=== PATIENT | male | born 1935 | race Caucasian/White ===

== ENCOUNTER → 2016-07-24 | Outpatient (CLI) | payer OTHER ==
[~2016-07-24] VITALS: Ht 177.8 cm; Wt 86.2 kg
[~2016-07-24] MED LIST: ACTOS PO; ADVAIR 100-501 EACH INH; ALLOPURINOL 30300 M1 PO; ALLOPURINOL 30300 M2 PO; ASPIRIN EC81 M1 PO; ASPIRIN325 PO; AVODART0.5 MG PO; CALCIUM 600 +1 EAC5 PO; CELEBREX 200 M200 MG PO; CLOPIDOGREL75 MG PO; CO Q-10100 MG PO; DIOVAN PO; DOCUSATE SODIU100 MG PO; EFFIENT10 MG PO; ENDOCET 10-3251 EACH PO; FLOMAX PO; FUROSEMIDE 40 M40 M1 PO; GLUCOPHAGE500 MG PO; HYDROCODONE-APA1 TA1 PO; INCRUSE ELLI62.5 MCG IH; LIVALO2 MG PO; METHYLIN 10 MG10 M1 PO; METHYLIN PO; METHYLIN10 MG PO; METHYLIN5 M1 PO; METHYLIN5 MG PO; METHYLPHENIDATE 10 MG PO; MIRALAX255 GM PO; MIRAPEX0.125 MG; MOVANTIK25 MG PO; NASONEX17 GM NS; NEURONTIN 300300 M1; NEURONTIN 300300 M1 PO; NEURONTIN800 MG PO; NUCYNTA ER100 MG PO; OMEPRAZOLE 20 M20 M1 PO; OPANA5 MG PO; OXYCODONE-ACET1 EAC2 PO; OXYCONTIN10 M1 PO; OXYCONTIN10 MG PO; OXYCONTIN15 MG PO; PANTOPRAZOLE SO40 M1 PO; PEPCID AC20 M1 PO; PERCOCET 10-321 EACH PO; PERCOCET 7.5-31 EAC1 PO; PERCOCET 7.5-31 EACH PO; PLAVIX 75 MG TA75 MG PO; PRAVASTATIN SOD10 MG PO; ROXICODONE5 M2 PO; ROXICODONE5 MG PO; STOOL SOFTENER1 EAC2 PO; TAMSULOSIN HCL0.4 M1 PO; TRENTAL400 MG PO
--- NOTE | ~2016-07-24 | HPC ---
[facility] [address] [place] [address] PAIN MANAGEMENT CONSULTATION Name: CHATO LYNCH Room #: REG [facility] Bon.#: [id number] Admission: 07/24/16 Attend Phys: Harrison Coto DO Discharge: Date of : 35 Report #: [id number] THIS REPORT FOR: //name// CC: Harrison Coto ADRIANNA ROGERS The patient is a pleasant 80-year-old gentleman well known to pain clinic, typically treated for lumbar radiculopathy status post decompressive laminectomy. Comorbidity includes atherosclerotic peripheral vascular disease requiring complex medication management. Last seen in pain clinic back in April. He was having some sedation with gabapentin 300 mg 3 at night and Percocet 7.5 three a day. We decreased the gabapentin to two a day and rotated the hydrocodone 7.5/325 three a day. He returns to pain clinic today noting the medications have been quite helpful. He feels that he is a little less sedated. He has been using Movantik 25 mg to help with opiate-induced constipation that has been efficacious as well. The patient notes pain is about 7/10, but he is generally doing all activities of daily living. Chronic low back pain with no significant radicular component noted. PHYSICAL EXAMINATION: GENERAL: Shows a 27-year-old gentleman. NEUROLOGIC: Alert and oriented to person, place, and time, judged to be a reasonable historian. VITAL SIGNS: Blood pressure is modestly elevated at 176/81, pulse 56, respirations are 18. Alert and oriented as noted. MUSCULOSKELETAL: Upper extremity strength is symmetric. Rises from chair using armrest. Gait is tandem. Lower extremity strength is preserved. Diffuse tenderness across the low back. No discrete trigger points noted. We reviewed the fact that opiate medications are being used to provide analgesia adequate to support activities of daily living, not attempting to achieve a specific pain score on the 0-10 Visual Analog Scale. The current opiate medications are providing sufficient analgesia to allow the patient to participate in activities of daily living. The patient is not exhibiting any aberrant behavior suggestive of drug diversion. The patient is not having any adverse reactions to medications. The patient is not suffering from daytime somnolence or mental acuity changes. The patient is managing opiate-induced constipation with appropriate wsvh-nfm-skxbrah agents and dietary considerations. The patient was counseled on concern for caution with operating a motor vehicle while using opiate medications. A physical exam was performed and the patient's functional status was evaluated. All patients with back pain were advised against the bed rest greater than 4 days and were advised to return to normal activities. Pain score assessment was [address] [address] PAIN MANAGEMENT CONSULTATION Name: CHATO LYNCH Room #: REG [facility] Cathleen#: [id number] Admission: 07/24/16 Attend Phys: Harrison Coto DO Discharge: Date of : 35 Report #: [id number] noted and the treatment plan was reviewed with the patient. All current medications, both prescribed and OTC were reviewed and reconciled on the electronic medical record. Tobacco screening was accomplished and smoking cessation was advised when indicated. BMI was noted and diet/exercise modification was recommended for all patients following outside normal parameters. I reviewed with the patient today their responsibilities to safeguard prescription medications, reviewed their responsibility to utilize medications only as prescribed by the physician. They are to seek and receive pain medications only from 1 physician group ( [facility]). They are to use 1 pharmacy and keep the clinic informed if they change pharmacies. Their responsibilities include making followup visits in a timely fashion and to avoid abrupt discontinuation of medication usage. Their responsibilities further include bringing their medications (bottles from the pharmacy with residual pills) to the visit for possible confirmation of pill counts and the patient understands it is their responsibility to submit to random drug screens to ensure both that the medications prescribed are present, and that no other controlled substances are present. All prescriptions provided today were generated electronically. ASSESSMENT: Symptomatic lumbar radiculopathy status post decompressive laminectomy, atherosclerotic peripheral vascular disease by history requiring complex medication management. RECOMMENDATION: Continue current medication including hydrocodone 7.5/325 three a day, Movantik 25 mg 1 a day, gabapentin 300 mg 2 tablets at bedtime. He does not require prescription for the latter medication. Follow up in 2 months for reevaluation. <ELECTRONICALLY SIGNED> By: Harrison Coto DO 07/29/16 0729 1638 [id number] Harrison Coto DO /nt
[2016-07-24 12:58] VITALS: BP 176/81
== END ==
LOC: PAIN 07:33
DX: M54.16 Radiculopathy, lumbar region (principal); M96.1 Postlaminectomy syndrome, not elsewhere classified; I70.209 Unspecified atherosclerosis of native arteries of extremities, unspecified extremity; I10 Essential (primary) hypertension; Z87.891 Personal history of nicotine dependence

== ENCOUNTER 2016-09-29 17:40 | Inpatient (IN) | payer OTHER ==
[~2016-09-29] VITALS: Ht 177.8 cm; Wt 81.6 kg
--- NOTE | ~2016-09-29 | 2DMMODE ---
[facility] [place] [address] 2 D/M-MODE ECHOCARDIOGRAM Name: CRISCHATO MANUELITO Room #: 209-P ADM IN M.R.#: [id number] Admission: 09/29/16 Attend Phys: Kaelyn Ulloa Discharge: Date of : 35 Date of Service: 09/30/16 1105 Report #: [id number] THIS REPORT FOR: //name// APPROVED REPORT Study performed: 09/30/2016 08:57:23 EXAM: Comprehensive 2D, Doppler, and color-flow Echocardiogram Patient Location: Echo lab/Room 209 Blood Pressure: 137/68 mmHg HR: 53 bpm Rhythm: NSR Other Information Study Quality: Adequate Indications CAD Chest Pain Hx: cardiac stents, CHF, HTN, HLP, DM, COPD 2D Dimensions RVDd: 36.08 mm LVEF(%): 56.56 (>50%) IVSd: 13.43 (7-11mm) LVOT Diam: 21.01 (18-24mm) LVDd: 43.13 mm PWd: 12.78 (7-11mm) Ascending Aorta: 35.44 mm LVDs: 30.46 (25-40mm) Aortic Root: 36.39 mm Schwartz's LVEF: 56.56 % Volumes Left Atrial Volume (Systole) Single Plane 4CH: 91.52 mL Single Plane 2CH: 79.99 mL LA ESV Index: 46.00 mL/m2 Aortic Valve AoV Peak David.: 2.20 m/s AO Peak Gr.: 19.33 mmHg LV Max P.53 mmHg LV Max: 2.03 m/s Mitral Valve MV PHT: 79.04 ms [facility] [address] [address] 2 D/M-MODE ECHOCARDIOGRAM Name: CRISCHATO BILLINGS Room #: 209-P [facility] IN ..#: [id number] Admission: 09/29/16 Attend Phys: Kaelyn Ulloa Discharge: Date of : 35 Date of Service: 09/30/16 1105 Report #: [id number] MV E Max David.: 0.82 m/s E/A Ratio: 0.8 MV A David.: 1.08 m/s MV Decel. Time: 272.54 ms Pulmonary Valve PV Peak David.: 0.95 m/s PV Peak Gr.: 3.61 mmHg Tricuspid Valve TR Peak David.: 2.50 m/s RAP Estimate: 5.00 mmHg TR Peak Gr.: 25.04 mmHg RVSP: 30.00 mmHg Left Ventricle The left ventricle is normal size. There is normal LV segmental wall motion. Mild concentric left ventricular hypertrophy. Left ventricular systolic function is normal. LVEF is 65%. Grade I - abnormal relaxation pattern. Right Ventricle The right ventricle is normal size. The right ventricular systolic function is normal. Atria Left atrium is moderately dilated. The right atrium size is normal. Aortic Valve Aortic valve is calcified. Trace aortic regurgitation. There is no aortic valvular stenosis. Mitral Valve The mitral valve is normal in structure. Moderate mitral annular calcification. Mild mitral regurgitation. Tricuspid Valve The tricuspid valve is normal in structure. There is mild tricuspid regurgitation. The right atrial pressure is estimated at 5 mmHg. There is borderline mild pulmonary hypertension. Estimated pulmonary artery pressure is 30mmHg. Pulmonic Valve The pulmonary valve is normal in structure. Trace pulmonic regurgitation. Great Vessels The aortic root is normal in size. The ascending aorta is normal in size. IVC is normal in size and collapses >50% with inspiration. [facility] [address] [place] [address] 2 D/M-MODE ECHOCARDIOGRAM Name: CRISCHATO MANUELITO Room #: 209-P [facility] IN M.R.#: [id number] Admission: 09/29/16 Attend Phys: Kaelyn Ulloa Discharge: Date of : 35 Date of Service: 09/30/16 1105 Report #: [id number] Pericardium There is no pericardial effusion. <Conclusion> The left ventricle is normal size. LVEF is 65%. Left atrium is moderately dilated. Trace aortic regurgitation. The mitral valve is normal in structure. Moderate mitral annular calcification. Mild mitral regurgitation. There is mild tricuspid regurgitation. The right atrial pressure is estimated at 5 mmHg. There is borderline mild pulmonary hypertension. Estimated pulmonary artery pressure is 30mmHg. Trace pulmonic regurgitation. <ELECTRONICALLY SIGNED> By: Santiago Combs MD 09/30/16 1105 1105 1105 Santiago Combs MD /INF
--- NOTE | ~2016-09-29 | EKG ---
[address] [address] ELECTROCARDIOGRAM REPORT Name: CHATO LYNCH MANUELITO Room #: 209-[facility] IN M.R.#: [id number] Admission: 09/29/16 Attend Phys: Leonard Weems MD Discharge: 10/01/16 Date of : 35 Report #: [id number] THIS REPORT FOR: //name// [facility] Test Date: 2016-09-29 Test Time: 21:16:49 Pat Name: CHATO LYNCH Department: Room: 209 Gender: M Senior Gamemaster: Ann Marie PRESTON : 1935 Requested By: Nedra Ge Order Number: [id number] MD: Ezekiel Werner Measurements Intervals [place] Rate: 48 P: -21 OK: 314 QRS: 53 QRSD: 110 T: 224 QT: 475 QTc: 425 Interpretive Statements Sinus bradycardia Prolonged OK interval Repol abnrm, prob ischemia, anterolateral lds No previous ECG available for comparison Electronically Signed On 10-02-2016 13:06:08 CDT by Ezekiel Werner [email or web address] <ELECTRONICALLY SIGNED> By: Ezekiel Werner MD 10/02/16 1306 15 15 Ezekiel Werner MD /[facility]
[~2016-09-29 17:40] MED LIST changes: -MIRAPEX0.125 MG; +MIRAPEX0.125 MG PO
[2016-09-29 20:38] VITALS: BP 150/63
[2016-09-29] MEDS ORDERED: SINGULAIR 10 MG10 M1 PO (20:40)
[2016-09-29] MEDS ORDERED: ADVAIR INH (20:40)
[2016-09-29] MEDS ORDERED: PROTONIX40 M1 PO (20:41)
[2016-09-29] MEDS ORDERED: KLOR-CON 1010 MEQ PO ×2 (20:42→20:43)
[2016-09-29] MEDS ORDERED: DIOVAN 80 MG TA80 M1 PO (20:43)
[2016-09-29 21:03] LABS: HEMATOCRIT 48.6 % (42.0-52.0); HEMOGLOBIN 16.1 gm/dL (14.0-18.0); MCH 30.2 pg (26.0-34.0); MCHC 33.2 g/dL (28.0-37.0); MCV 91.1 fL (80.0-100.0); RBC 5.34 mil/uL (4.50-6.00); RDW 15.4 % (10.5-14.5); WBC 8.9 thou/uL (4.0-11.0)
[2016-09-29 21:13] LABS: ANION GAP 7 mmol/L (7-16); BUN 21 mg/dL (7-18); CHLORIDE 103 mmol/L (98-107); CO2 25 mmol/L (21-32); CREATININE 1.1 mg/dL (0.6-1.3); GLUCOSE 99 mg/dL (70-99); POTASSIUM 4.7 mmol/L (3.5-5.1); SODIUM 135 mmol/L (136-145)
[2016-09-29 21:22] LABS: TROPONIN-I < 0.04 ng/mL (<0.04-0.07)
[2016-09-29 23:51] VITALS: BP 154/66
[2016-09-30 00:37] VITALS: BP 154/66
[2016-09-30] MEDS ORDERED: HYDROCODONE-APA1 TA1 PO (00:43)
[2016-09-30 03:54] LABS: CHOLESTEROL 125 mg/dL (<200); HDL CHOLESTEROL 31 mg/dL (>40); LDL CHOLESTEROL 74 mg/dL (<100); TRIGLYCERIDE 101 mg/dL (<150); VLDL 20 mg/dL (<40)
[2016-09-30 04:13] VITALS: BP 115/63
[2016-09-30 08:30] VITALS: BP 137/68
[2016-09-30 11:20] VITALS: BP 102/55
[2016-09-30 15:50] VITALS: BP 109/70
[2016-09-30 19:59] VITALS: BP 126/61
[2016-10-01] VITALS (7 sets, daily range): BP systolic 110–124; BP diastolic 62–72
[2016-10-01 03:52] LABS: CALCIUM 9.9 mg/dL (8.5-10.1); POTASSIUM 4.4 mmol/L (3.5-5.1)
[2016-10-01 04:25] LABS: HEMATOCRIT 46.2 % (42.0-52.0); HEMOGLOBIN 15.5 gm/dL (14.0-18.0); MCHC 33.5 g/dL (28.0-37.0); MCV 89.5 fL (80.0-100.0); RBC 5.16 mil/uL (4.50-6.00); WBC 9.7 thou/uL (4.0-11.0)
== END 2016-10-01 17:40 | disposition home health service (06) | DRG 392 ==
LOC: 2N 17:40
PROVIDERS: Hospitalist; Nurse Practitioner
DX: K21.9 Gastro-esophageal reflux disease without esophagitis (principal); I50.30 Unspecified diastolic (congestive) heart failure; J44.9 Chronic obstructive pulmonary disease, unspecified; I77.89 Other specified disorders of arteries and arterioles; I11.0 Hypertensive heart disease with heart failure; E78.5 Hyperlipidemia, unspecified; I25.10 Atherosclerotic heart disease of native coronary artery without angina pectoris; G47.33 Obstructive sleep apnea (adult) (pediatric); E78.00 Pure hypercholesterolemia, unspecified; E11.51 Type 2 diabetes mellitus with diabetic peripheral angiopathy without gangrene; Z87.891 Personal history of nicotine dependence; Z88.1 Allergy status to other antibiotic agents; Z88.8 Allergy status to other drugs, medicaments and biological substances; Z95.5 Presence of coronary angioplasty implant and graft; Z90.49 Acquired absence of other specified parts of digestive tract; Z79.82 Long term (current) use of aspirin; Z79.899 Other long term (current) drug therapy; Z82.49 Family history of ischemic heart disease and other diseases of the circulatory system
CPT/HCPCS: 10081

== ENCOUNTER → 2016-10-23 | Outpatient (CLI) | payer OTHER ==
[~2016-10-23] VITALS: Ht 180.3 cm; Wt 83.9 kg
[~2016-10-23] MED LIST changes: +ADVAIR INH; +DIOVAN 80 MG TA80 M1 PO; +KLOR-CON 1010 MEQ PO; +MS CONTIN15 MG PO; +NORCO 7.5-3251 EACH PO; +PROTONIX40 M1 PO; +SINGULAIR 10 MG10 M1 PO
--- NOTE | ~2016-10-23 | HPC ---
[facility] [place] [address] PAIN MANAGEMENT CONSULTATION Name: CRISCHATO Jesus [id number] Admission: 10/23/16 Attend Phys: Harrison Coto DO Discharge: Date of : 35 Report #: [id number] THIS REPORT FOR: //name// CC: Harrison Coto ADRIANNA ROGERS The patient is a very pleasant 80-year-old gentleman long known to pain clinic, being treated for symptomatic lumbar radiculopathy status post decompressive laminectomy, chronic pain syndrome requiring complex medication management, comorbidity includes significant atherosclerotic peripheral vascular disease. The patient had been stable on Percocet 7.5/325 for some time back in April. However, he became somewhat tolerant to this opiate regimen and rotated to hydrocodone 7.5/325 three a day, continued gabapentin 300 mg t.i.d. had been decrease to b.i.d. in consideration of some cognitive sedation. Last visit 07/24/2016, we continued hydrocodone 7.5/325 three a day, trailed Movantik for constipation 25 mg and gabapentin 300 mg b.i.d. Returns to pain clinic today for prolonged visit, was seen from 1301 to 1330, greater than 50% of this 25+ minute visit was spent counseling the patient. The patient notes the interval since we last saw him, he was admitted to the hospital for what turned out to be Non-ST elevated OR as this was actually last month. He continues to complain of primarily low back pain about the beltline with some radiation into his legs although it is fairly rare, he uses a cane in his right hand. Has started home physical therapy, though states with the activity and exercises they gave me thinks is exacerbate his axial back pain. Notes his pain as 4/10 presently but gets worse throughout the day and with activity. It is chronic in the low back area, exacerbated with standing, gets some relief with medication and/or leaning on something. PHYSICAL EXAMINATION: Shows 80-year-old gentleman, BMI is 25.8 kilograms per meter squared. Vital signs stable as noted in the EMR. Rises from chair using armrest. Diffuse tenderness across the low back. No discrete trigger points are noted. Lower extremity strength remains generally preserved. Straight leg raise negative at this time. Skin integument is intact. ASSESSMENT: Symptomatic lumbar radiculopathy status post decompressive laminectomy, significant atherosclerotic peripheral vascular disease requiring complex medication management. RECOMMENDATION: Long discussion with the patient today about therapeutic options. I strongly encouraged him to continue with the physical exercise, though he is loathe to do so as this seems to exacerbate his pain. Given this issue, we ultimately elected to start the patient on MS Contin 15 mg 1 tablet in the morning. He typically wakes about 4 or 5 a.m. takes his pain medication and ultimately gets out of the bed an hour or so later. I suggest he started taking [address] [address] PAIN MANAGEMENT CONSULTATION Name: CHATO LYNCH Room #: REG VER[facility]NICA Connolly#: [id number] Admission: 10/23/16 Attend Phys: Harrison Coto DO Discharge: Date of : 35 Report #: [id number] MS Contin at 4 or 5 a.m., take hydrocodone 7.5/325 t.i.d. as usual as needed for breakthrough pain, perhaps once in the mid morning, afternoon and evening. With this, I strongly recommend that he follow through with his core exercises. He brought with him today the handout from his therapist. There are about six exercises that appear pretty basic. I would like to see him back in 2 months for reevaluation. If he is doing well, we will try and wean the morphine if he starts to feel a little stronger and back pain starts to improve with activity. Today, we did get a urine drug screen. No aberrant behavior suggestive for drug diversion, simply complying with opiate consent to treat contract, it has been much greater than a year since last urine drug screen. We reviewed the fact that opiate medications are being used to provide analgesia adequate to support activities of daily living, not attempting to achieve a specific pain score on the 0-10 Visual Analog Scale. The current opiate medications are providing sufficient analgesia to allow the patient to participate in activities of daily living. The patient is not exhibiting any aberrant behavior suggestive of drug diversion. The patient is not having any adverse reactions to medications. The patient is not suffering from daytime somnolence or mental acuity changes. The patient is managing opiate-induced constipation with appropriate wbqn-ltq-bzlauca agents and dietary considerations. The patient was counseled on concern for caution with operating a motor vehicle while using opiate medications. A physical exam was performed and the patient's functional status was evaluated. All patients with back pain were advised against the bed rest greater than 4 days and were advised to return to normal activities. Pain score assessment was noted and the treatment plan was reviewed with the patient. All current medications, both prescribed and OTC were reviewed and reconciled on the electronic medical record. Tobacco screening was accomplished and smoking cessation was advised when indicated. BMI was noted and diet/exercise modification was recommended for all patients following outside normal parameters. I reviewed with the patient today their responsibilities to safeguard prescription medications, reviewed their responsibility to utilize medications only as prescribed by the physician. They are to seek and receive pain medications only from 1 physician group ( [facility]). They are to use 1 pharmacy and keep the clinic informed if they change pharmacies. Their responsibilities include making followup visits in a timely fashion and to avoid abrupt discontinuation of medication usage. Their responsibilities further include bringing their medications (bottles from the pharmacy with residual pills) to the visit for possible confirmation of pill counts and the patient understands it is their responsibility to submit to random drug screens to ensure both that the medications prescribed are present, and that no other controlled substances are present. All prescriptions provided today were [address] [address] PAIN MANAGEMENT CONSULTATION Name: CHATO LYNCH [facility] [id number] Admission: 10/23/16 Attend Phys: Harrison Coto DO Discharge: Date of : 35 Report #: [id number] generated electronically. The patient discharged in good and stable condition with prescription for hydrocodone 7.5/325 t.i.d., Movantik 25 mg once a day, gabapentin 300 mg b.i.d., and MS Contin 15 mg 1 tablet in the morning, 2 months of medications prescribed. Discharged in good and stable condition. <ELECTRONICALLY SIGNED> By: Harrison Coto DO 10/26/16 1538 1649 0464 Harrison Coto, DO /nt
[2016-10-23 12:51] VITALS: BP 127/71
== END ==
LOC: PAIN 06:52
DX: M54.16 Radiculopathy, lumbar region (principal); G89.4 Chronic pain syndrome; I10 Essential (primary) hypertension; Z87.891 Personal history of nicotine dependence

== ENCOUNTER → 2016-12-31 | Outpatient (CLI) | payer OTHER ==
[~2016-12-31] VITALS: Ht 177.8 cm; Wt 83.6 kg
[2016-12-31 12:54] VITALS: BP 157/68
== END | disposition home or self-care (01) ==
LOC: PAIN 06:44
DX: M48.06 Spinal stenosis, lumbar region (principal); G89.29 Other chronic pain; M47.896 Other spondylosis, lumbar region; I73.9 Peripheral vascular disease, unspecified; I21.4 Non-ST elevation (NSTEMI) myocardial infarction; K21.9 Gastro-esophageal reflux disease without esophagitis; F11.20 Opioid dependence, uncomplicated; Z87.19 Personal history of other diseases of the digestive system; Z87.310 Personal history of (healed) osteoporosis fracture; Z87.891 Personal history of nicotine dependence; Z88.8 Allergy status to other drugs, medicaments and biological substances; Z79.82 Long term (current) use of aspirin

== ENCOUNTER 2017-02-13 09:39 | Emergency (ER) | payer OTHER ==
[~2017-02-13] VITALS: Ht 177.8 cm; Wt 79.4 kg
--- NOTE | ~2017-02-13 | EKG ---
[address] [address] ELECTROCARDIOGRAM REPORT Name: CHATO LYNCH [id number] Admission: 02/13/17 Attend Phys: Discharge: 02/13/17 Date of : 35 Report #: [id number] THIS REPORT FOR: //name// [facility] Test Date: 2017-02-13 Test Time: 09:49:05 Pat Name: CHATO LYNCH Department: Room: Gender: M Quality Control Inspector: [id number] : 1935 Requested By: Suman Tony Order Number: [id number] MD: Ezekiel Werner Measurements Intervals [place] Rate: 85 P: 0 PA: 136 QRS: 114 QRSD: 133 T: 11 QT: 388 QTc: 462 Interpretive Statements Afib Nonspecific intraventricular conduction delay Minimal ST depression Electronically Signed On 02-14-2017 22:15:14 CDT by Ezekiel Werner [email or web address] <ELECTRONICALLY SIGNED> By: Ezekiel Werner MD 02/14/17 2215 0949 0949 Ezekiel Werner MD /PEPPER
[2017-02-13 10:17] LABS: HEMOGLOBIN 14.8 gm/dL (14.0-18.0); MCH 29.5 pg (26.0-34.0); MCHC 33.5 g/dL (28.0-37.0); MCV 88.1 fL (80.0-100.0); PLATELET COUNT 435 thou/uL (150-400); RBC 4.99 mil/uL (4.50-6.00); RDW 16.5 % (10.5-14.5); WBC 12.6 thou/uL (4.0-11.0)
[2017-02-13 10:28] LABS: MANUAL DIFF YES
[2017-02-13 10:33] LABS: APTT 31.6 Seconds (24.5-32.8); INR 1.1; PROTIME 11.7 Seconds (9.3-11.4)
[2017-02-13 10:35] LABS: ANION GAP 10 mmol/L (7-16); BUN 13 mg/dL (7-18); CALCIUM 9.7 mg/dL (8.5-10.1); CHLORIDE 99 mmol/L (98-107); CO2 28 mmol/L (21-32); GLUCOSE 130 mg/dL (74-106); POTASSIUM 4.3 mmol/L (3.5-5.1); SODIUM 137 mmol/L (136-145)
[2017-02-13 10:48] LABS: ALBUMIN 2.6 g/dL (3.4-5.0); ALKALINE PHOSPHATASE 704 U/L (46-116); MAGNESIUM 1.8 mg/dL (1.8-2.4); NT-PRO BRAIN NAT PEPTIDE 1793 pg/mL (<300); SGOT 55 U/L (15-37); SGPT 74 U/L (30-65); TOTAL BILIRUBIN 1.7 mg/dL (<0.1-1.0); TOTAL PROTEIN 7.1 g/dL (6.4-8.2); TROPONIN-I < 0.04 ng/mL (<0.04-0.07)
[2017-02-13 11:45] LABS: ABSOLUTE NEUTROPHILS 10.7 thou/uL (1.4-8.2); LARGE PLATELETS OCCASIONAL; TOTAL CELL COUNT 100
[2017-02-13] MEDS ORDERED: ROBAXIN500 MG PO (12:56)
[2017-02-13 13:15] VITALS: BP 149/50
== END 2017-02-13 13:00 | disposition home or self-care (01) ==
LOC: ER 09:39
PROVIDERS: Emergency Medicine
DX: M43.6 Torticollis (principal); I25.10 Atherosclerotic heart disease of native coronary artery without angina pectoris; M47.896 Other spondylosis, lumbar region; Z90.89 Acquired absence of other organs; E11.9 Type 2 diabetes mellitus without complications; I10 Essential (primary) hypertension; Z95.5 Presence of coronary angioplasty implant and graft; Z88.1 Allergy status to other antibiotic agents; Z88.5 Allergy status to narcotic agent; Z88.8 Allergy status to other drugs, medicaments and biological substances

== ENCOUNTER → 2017-03-15 | Outpatient (CLI) | payer OTHER ==
[~2017-03-15] VITALS: Ht 177.8 cm; Wt 70.8 kg
[~2017-03-15] MED LIST changes: +BENICAR20 MG PO; +ENSURE LIQUID237 M1 PO; +HYDROCODONE-AP1 EAC6 PO; +LEVSIN-SL0.125 MG SUBLING; +MIRALAX17 GM PO; +ROBAXIN500 MG PO
--- NOTE | ~2017-03-15 | HPC ---
[facility] [address] [place] [address] PAIN MANAGEMENT CONSULTATION Name: CRISCHATO Ann Marie Room #: REG [facility] Bon.#: [id number] Admission: 03/15/17 Attend Phys: Harrison Coto DO Discharge: Date of : 35 Report #: [id number] THIS REPORT FOR: //name// CC: MILDRED Coto HISTORY OF PRESENT ILLNESS: The patient is a pleasant 81-year-old gentleman who long being treated for lumbar radiculopathy secondary to spinal stenosis, axial back pain, history of compression fractures requiring high-risk complex medication management. Component of neurogenic claudication. Last visit on 12/31/2016, he is having ongoing dysphasia. We continued hydrocodone 7.5/325 up to 4 a day. Urine drug screen at that visit was positive for prescribed medications. PHYSICAL EXAMINATION: Showed the patient to be basically unchanged, but he had lost a little bit of weight. BMI, however, was still 26.4. He returns to pain clinic today. He has lost a significant amount of weight. His BMI is down to 22.4 kg/m2. He states he has lost some pounds recently. Notes he is having early satiety, has nausea and vomiting if he eats greater than about a small handful of food. Notes he quit smoking back in 1989. It sounds like in the interval since I last saw him, Dr. Jordan had done a percutaneous endarterectomy. He is continued on Plavix. The patient notes he did have an esophageal dilatation back in July or August, states he was only better for "a week or so." With ongoing sedation, I had weaned off of morphine and gabapentin over the last several visits. He returns to pain clinic today, we had a prolonged visit from 8:45 to 9:15, greater than 50% of this 30 minute visit was spent reviewing interval history, current concerns and counseling the patient on therapeutic options. He notes he sleeps very little during the evening, though he states he does go to bed at 10:30 and gets up at 6:00 a.m. He states he is only asleep a few hours, but he falls asleep often during the day. He says when his son comes over, he is frequently in the chair ostensibly asleep, but he states he easily arouses and states he was merely "thinking about things." It sounds like he is taking a lot of "cat-naps" during the day. States the hydrocodone 7.5/325 does cause a little sedation. Physical exam again shows a little bit of a cachectic 81-year-old gentleman. Weight is down with a BMI of 22.4 kg/m2, blood pressure is modestly elevated at 149/68, pulse 62, respirations 18. Alert and oriented to person, place and time, judged to be a reasonable historian, still has moderately pinpoint pupils. Rises from chair using armrest. Has a little bit of tentative gait, uses a [facility] [address] [place] [address] PAIN MANAGEMENT CONSULTATION Name: CHATO LYNCH Room #: REG VERÓNICA Connolly#: [id number] Admission: 03/15/17 Attend Phys: Harrison Coto, DO Discharge: Date of : 35 Report #: [id number] cane for balance, though lower extremity strength is diminished and is asymmetric. Diffuse tenderness across the low back, though no discrete point tenderness compatible with new compression fracture. Again, the patient describes a neurogenic claudication, axial back and radicular leg pain with standing greater than 10-15 minutes, but we cannot reproduce it in the clinic today. ASSESSMENT: Lumbar radiculopathy secondary to spinal stenosis, axial back pain, history of vertebral compression fractures, neurogenic claudication requiring high-risk complex medication management in a gentleman with early satiety and what sounds like esophageal spasm. RECOMMENDATIONS: 1. We will trial Levsin 0.125 sublingual prior to meals 3 times a day for what sounds like esophageal spasm. 2. Decrease hydrocodone from 7.5/325 to 5/325 four a day. Follow up in 1 month for reevaluation. If pain is an issue at that point, we might consider rotating to Percocet 5/325. If early satiety and abdominal spasm remain problematic, we will refer back to Gastroenterology. Discharged in good and stable condition after a 30-minute visit was spent counseling the patient. Discharged in good, stable condition. <ELECTRONICALLY SIGNED> By: Harrison Coto DO 03/17/17 0811 0914 2147 Harrison Coto DO /nt
[2017-03-15 08:37] VITALS: BP 149/68
== END | disposition home or self-care (01) ==
LOC: PAIN 07:13
DX: Z76.0 Encounter for issue of repeat prescription (principal); M54.16 Radiculopathy, lumbar region; M48.06 Spinal stenosis, lumbar region; I25.10 Atherosclerotic heart disease of native coronary artery without angina pectoris; Z87.311 Personal history of (healed) other pathological fracture; Z79.891 Long term (current) use of opiate analgesic; Z87.891 Personal history of nicotine dependence; Z98.890 Other specified postprocedural states; Z88.2 Allergy status to sulfonamides; Z88.6 Allergy status to analgesic agent; Z88.1 Allergy status to other antibiotic agents; Z79.82 Long term (current) use of aspirin; Z79.899 Other long term (current) drug therapy